=== PATIENT | male | born 1950 | race Caucasian/White ===

== ENCOUNTER 2019-07-24 13:25 | Emergency (ER) | payer BC, MEDICARE ==
[2019-07-24] MEDS ORDERED: Sodium Chloride 0.9% 1000 ML 1,000 ML IV STA (13:39)
[2019-07-24] MEDS ORDERED: MORPHINE SULFATE 10 MG/ML IV ONE (13:41)
[2019-07-24] MEDS ORDERED: MORPHINE SULFATE 4 MG INJ ONE ×2 (13:43→14:35)
[2019-07-24] MEDS ORDERED: Sodium Chloride 0.9% 1000 ML 1,000 ML ONE (13:43)
[2019-07-24 13:47] LABS: Hematocrit 43.5 % (42-50); Hemoglobin 14.3 gm/dl (12.5-18.0); Mean Cell Volume 93.3 fl (78-100); Mean Corpuscular Hemoglobin 30.7 pg (26-32); Mean Corpuscular Hgb Concent. 32.9 g/dl (32-36); Mean Platelet Volume 8.8 fl (7.5-11.0); Platelet Count 199 K/mm3 (150-450); Red Blood Count 4.66 M/mm3 (4.1-5.6); Red Cell Distribution Width 14.6 % (11.5-14.0); White Blood Count 9.3 K/mm3 (4.0-10.5)
[2019-07-24 13:49] VITALS: BP 163/98; PULSE 88; O2SAT 99
[2019-07-24 13:51] LABS: ALKALINE PHOSPHATASE 76 U/L (38-126); ANION GAP 14.9 MEQ/L (5-15); BLOOD UREA NITROGEN 19 mg/dL (9-20); CHLORIDE 106 mmol/L (98-107); Calcium 9.1 mg/dL (8.4-10.2); Carbon Dioxide 22 mmol/L (22-30); Glucose 162 mg/dL (74-106); Potassium 3.8 mmol/L (3.5-5.1); SGOT/AST 33 U/L (17-59); SODIUM 140 mmol/L (137-145); Total Protein 6.8 g/dL (6.3-8.2)
[2019-07-24 13:57] LABS: SGPT/ALT 40 U/L (0-50)
[2019-07-24 14:20] LABS: Lymphocytes 8 % (24-44); Monocyte 8 % (0.0-12.0); Neutrophils 84 % (36.-66.); Total Cells Counted 100
[2019-07-24 14:22] LABS: Platelet Estimate NORMAL (NORMAL)
[2019-07-24] MEDS ORDERED: MORPHINE SULFATE 10 MG/ML IV STA (14:28)
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
[2019-07-24] MEDS ORDERED: Adacel Vial IM ONE ×2 (14:40→14:43)
== END 2019-07-24 14:53 | disposition short-term general hospital (02) ==
LOC: ED 13:25
DX: T24.222A Burn of second degree of left knee, initial encounter (principal); T24.232A Burn of second degree of left lower leg, initial encounter; X08.8XXA Exposure to other specified smoke, fire and flames, initial encounter
CPT/HCPCS: 36000; 36415; 80053; 85025; 90471; 90715; 93041; 94760; 96360; 96374; 96376; 99285; J2270